=== PATIENT | male | born 2000 | race Caucasian/White ===

== ENCOUNTER 2022-06-30 21:34 | Emergency (ER) | payer OTHER ==
[~2022-06-30] VITALS: Ht 177.8 cm; Wt 61.4 kg
== END 2022-07-01 00:47 | disposition home or self-care (01) ==
LOC: ER 21:34
DX: S61.213A Laceration without foreign body of left middle finger without damage to nail, initial encounter (principal); W26.0XXA Contact with knife, initial encounter
CPT/HCPCS: 12001; 99282